=== PATIENT | female | born 1970 | race Caucasian/White ===

== ENCOUNTER 2021-08-11 20:00 | Emergency (ER) | payer OTHER ==
[~2021-08-11] VITALS: Ht 162.6 cm; Wt 100.0 kg
--- NOTE | 2021-08-11 20:13 | PHYS DOC ---
Past History Past Medical History: No Pertinent History Past Medical History + COVID 08/10/21 Past Surgical History: Cholecystectomy, Hysterectomy, Tubal ligation Smoking: Cigarettes Alcohol Use: None Drug Use: None General Adult EDM: Chief Complaint: SORE THROAT HPI: HPI: ".. I ve got a really sore throat... and fever.. some chills....." " My home test for COVID was positive yesterday... 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 Patient has been running temperatures at home. Temperature on arrival here was 102.7. Did take Tylenol earlier in the afternoon. Has had Moderna vaccination x3. Pt. has had flu vaccination. . 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 Patient lives in [place] here locally. Normally follows with Dr. Marcus. Pt. had + COVID test yesterday after approximately 4 days of symptoms. Review of Systems: Review of Systems: Constitutional: Complains of fever or chills Eyes: Denies change in visual acuity HENT: Denies nasal congestion. Complains of sore throat Respiratory: Denies cough or shortness of breath Cardiovascular: Denies chest pain or edema GI: Denies abdominal pain, nausea, vomiting, bloody stools or diarrhea : Denies dysuria Musculoskeletal: Complains of generalized myalgia and arthralgia Integument: Denies rash Neurologic: Denies headache, focal weakness or sensory changes Endocrine: Denies polyuria or polydipsia Lymphatic: Denies swollen glands Psychiatric: Denies depression or anxiety Family History: Family History: has diabetes. Daughter has had COVID Current Medications: Current Meds: See nursing for home meds Allergies: Allergies: Allergies Coded Allergies Type Severity Reaction Last Updated Verified No Known Drug Allergies 08/19/13 No Physical Exam: PE: Constitutional: Moderate acute distress, non-toxic appearance. [] HENT: Normocephalic, atraumatic, bilateral external ears normal, oropharynx moist, injected pharynx. Postnasal drainage. No oral exudates, nose mild turbinate edema and clear rhinorrhea. Eyes: PERRLA, EOMI, conjunctiva normal, no discharge. [] Neck: Normal range of motion, no tenderness, supple, no stridor. [] Cardiovascular:Heart rate regular rhythm, no murmur [] Lungs & Thorax: Bilateral breath sounds equal apex auscultation [] Abdomen: Bowel sounds normal, soft, no tenderness, no masses, no pulsatile masses. Old surgery scars. Skin: Warm, dry, no erythema, no rash. [] Back: No tenderness, no CVA tenderness. [] Extremities: No tenderness, no cyanosis, no clubbing, ROM intact, no edema. No cording appreciated Neurologic: Alert and oriented X 3, normal motor function, normal sensory function, no focal deficits noted. [] Psychologic: Affect anxious, judgement normal, mood normal. [] EKG: EKG: [] Radiology/Procedures: Radiology/Procedures: [] Heart Score: C/O Chest Pain: N/A Risk Factors: Risk Factors: DM, Current or recent (<one month) smoker, HTN, HLP, family history of CAD, obesity. Risk Scores: Score 0 - 3: 2.5% MACE over next 6 weeks - Discharge Home Score 4 - 6: 20.3% MACE over next 6 weeks - Admit for Clinical Observation Score 7 - 10: 72.7% MACE over next 6 weeks - Early Invasive Strategies Course & Med Decision Making: Course & Med Decision Making Pertinent Labs and Imaging studies reviewed. (See chart for details) Patient push fluids. Tylenol and ibuprofen for discomfort. Gargle with Listerine. Self isolate. Return if any concerns. Initial strep screen test was negative. Push fluids. Get adequate rest. Follow-up with primary. Impression: 1. Pharyngitis 2. Positive COVID test- symptoms x 4 days [] Dragon Disclaimer: Dragon Disclaimer: This electronic medical record was generated, in whole or in part, using a voice recognition dictation system. Departure Departure: Referrals: TRACEY MARCUS MD (PCP) Eloise Disclaimer This chart was dictated in whole or in part using Voice Recognition software in a busy, high-work load, and often noisy Emergency Department environment. It may contain unintended and wholly unrecognized errors or omissions. Dragon Disclaimer This chart was dictated in whole or in part using Voice Recognition software in a busy, high-work load, and often noisy Emergency Department environment. It may contain unintended and wholly unrecognized errors or omissions. LUNA LUGO MD Aug 11, 2021 20:13
[2021-08-11 20:16] VITALS: BP 152/75
[2021-08-11] MEDS: IBUPROFEN 600 MG TABLET. PO ONE (20:33)
[2021-08-11] MEDS: ACETAMINOPHEN 500 MG TABLET PO ONE (20:34)
== END 2021-08-11 20:59 | disposition home or self-care (01) ==
LOC: ER 20:00
DX: U07.1 COVID-19 (principal); J02.9 Acute pharyngitis, unspecified; F17.210 Nicotine dependence, cigarettes, uncomplicated; Z90.49 Acquired absence of other specified parts of digestive tract; Z90.710 Acquired absence of both cervix and uterus; Z98.51 Tubal ligation status
CPT/HCPCS: 99283